=== PATIENT | male | born 1945 | race Caucasian/White ===

== ENCOUNTER 2019-08-17 05:24 | Inpatient (IN) | payer OTHER ==
[~2019-08-17] VITALS: Ht 175.3 cm; Wt 79.4 kg
[2019-08-17 05:40] LABS: BASOPHILS ABSOLUTE AUTO 0.05 K/mm3 (0.00-0.23); BASOPHILS PERCENT AUTO 1 % (0-2); EOSINOPHILS ABSOLUTE AUTO 0.18 K/mm3 (0.00-0.68); EOSINOPHILS PERCENT AUTO 2 % (0-6); Hematocrit 41.8 % (37.0-53.0); Hemoglobin 13.4 g/dL (13.5-17.5); IMMATURE GRAN ABSOLUTE AUTO 0.02 K/mm3 (0.00-0.10); IMMATURE GRAN PERCENT AUTO 0 % (0-1); LYMPHOCYTES ABSOLUTE AUTO 3.11 K/mm3 (0.84-5.20); LYMPHOCYTES PERCENT AUTO 31 % (21-46); MONOCYTES ABSOLUTE AUTO 0.73 K/mm3 (0.16-1.47); MONOCYTES PERCENT AUTO 7 % (4-13); Mean Corpuscular HGB 29.8 pg (26.0-34.0); Mean Corpuscular HGB Conc 32.1 g/dL (31.5-36.5); Mean Corpuscular Volume 93 fL (80-100); Mean Platelet Volume 10.9 fL (9.1-12.4); NEUTROPHILS ABSOLUTE AUTO 5.85 K/mm3 (1.96-9.15); NEUTROPHILS PERCENT AUTO 59 % (41-73); Platelet Count 270 K/mm3 (150-400); RDW Coefficient Variation 13.5 % (11.7-14.2); RDW Standard Deviation 46.2 fL (35.1-46.3); White Blood Cell Count 9.94 K/mm3 (4.00-11.30)
[2019-08-17 06:02] LABS: Albumin, Blood 3.4 g/dL (3.4-5.0); Albumin/Globulin Ratio 0.8 (0.8-1.8); Bilirubin, Total 0.2 mg/dL (0.1-1.0); Calcium, Blood 8.8 mg/dL (8.5-10.1); Creatinine, Blood 1.37 mg/dL (0.60-1.20); Potassium, Blood 3.9 mmol/L (3.5-5.5); Total Protein, Blood 7.4 g/dL (6.4-8.2); Troponin I 0.239 ng/mL (0.000-0.040)
[2019-08-17 06:33] LABS: PCO2 Arterial 37.7 mmHg (35-45)
[2019-08-17 07:42] LABS: Cholesterol 180 mg/dL (50-200); HDL Cholesterol 60 mg/dL (>39); LDL/HDL RATIO 1.8; Low Density Lipoprotein Chol 107 mg/dL (0-110); Triglycerides 67 mg/dL (30-160); Very Low Density Lipoprot Chol 13 mg/dL (6-32)
[2019-08-17 17:25] LABS: Source, Urine Clean Catch
[2019-08-17 17:33] LABS: Bilirubin, Urine Neg (Neg); Blood, Urine 2+ (Neg); Glucose Qualitative, Urine 2+ (Neg); Ketones, Urine Neg (Neg); Leukocyte Esterase, Urine Neg (Neg); Nitrite, Urine Neg (Neg); Protein, Urine 3+ (Neg); Specific Gravity, Urine 1.015 (1.003-1.022); Urobilinogen, Urine NORM (Normal)
--- NOTE | 2019-08-17 17:43 | NUR ---
SHIFT NOTE PT ARRIVED FROM ER THIS MORNING. PT WITH HTN AND SOB NOTED ON ARRIVAL. PT STS THAT SOB BEGAN AFTER BURNING BRUSH ON HIS PROPERTY LAST NOC. PT ALSO REPORTS THAT HE HAS NOT TAKEN ANY OF HIS MEDICATIONS IN 7 YEARS HE FELT HE NO LONGER NEEDED THEM AND BEGAN SELF MEDCIATING WITH MARIJUANA THAT HE IS GROWING. PT IS OTHERWISE ALERT AND ANSWERING QUESTIONS APPROPRIATELY IN FULL SENTENCES. PT STS BREATHING IS "BETTER", DENIES CP
[2019-08-17 18:07] LABS: Appearance, Urine Clear (Clear); Color, Urine Yellow (P-Yellow)
[2019-08-17 18:09] LABS: Bacteria Few /hpf; Red Blood Cells, Urine Not Seen /hpf (0-2); Squamous Epithelial Cells Rare /hpf (Few); Transitional Epithelial Cells Rare /hpf (0-Rare); White Blood Cells, Urine 0-2 /hpf (0-5)
--- NOTE | 2019-08-18 01:08 | NUR ---
PATIENT HYPERTENSIVE 193/122 TO 186/98 THIS SHIFT. HOSPITALIST [facility] COMMUNICATIONS SPECIALIST REPORTS TO CONTINUE TO GIVE APRESOLINE PO 10 MG Q4 FOR SBP >160 PER EMAR. NO NEW ORDERS. HX OF BEING OFF HIS MEDICATIONS X 7 YEARS. WILL CONTINUE TO MONITOR.
--- NOTE | 2019-08-18 01:31 | NUR ---
BP 186/98 AND PO APRESOLINE 10 MG GIVEN FOR SBP >160. REASSESSED AT 165/94. WILL CONTINUE TO MONITOR. NS INFUSING AT 75 mL/HR.
--- NOTE | 2019-08-18 02:14 | NUR ---
RESPIRATORY PANEL COLLECTED AND SENT TO LAB. TOXICOLOGY SAMPLE COLLECTED AND SENT TO LAB.
[2019-08-18 02:41] LABS: U Amphetamine Screen DETECTED; U Barbituate Screen Not Detected; U Benzodiazapine Screen DETECTED; U Buprenorphine Screen Not Detected; U Cannabinoids Screen DETECTED; U Cocaine Screen Not Detected; U Methadone Screen Not Detected; U Methamphetamine Screen DETECTED; U Opiates Screen Not Detected; U Oxycodone Screen Not Detected; U Propoxyphene Screen Not Detected
[2019-08-18 04:25] LABS: BASOPHILS ABSOLUTE AUTO 0.01 K/mm3 (0.00-0.23); BASOPHILS PERCENT AUTO 0 % (0-2); EOSINOPHILS PERCENT AUTO 0 % (0-6); Hematocrit 40.5 % (37.0-53.0); Hemoglobin 13.4 g/dL (13.5-17.5); IMMATURE GRAN ABSOLUTE AUTO 0.04 K/mm3 (0.00-0.10); IMMATURE GRAN PERCENT AUTO 0 % (0-1); LYMPHOCYTES ABSOLUTE AUTO 0.93 K/mm3 (0.84-5.20); LYMPHOCYTES PERCENT AUTO 8 % (21-46); MONOCYTES ABSOLUTE AUTO 0.43 K/mm3 (0.16-1.47); MONOCYTES PERCENT AUTO 4 % (4-13); Mean Corpuscular HGB 29.8 pg (26.0-34.0); Mean Corpuscular HGB Conc 33.1 g/dL (31.5-36.5); Mean Platelet Volume 10.9 fL (9.1-12.4); NEUTROPHILS ABSOLUTE AUTO 10.63 K/mm3 (1.96-9.15); NEUTROPHILS PERCENT AUTO 88 % (41-73); Platelet Count 285 K/mm3 (150-400); RDW Coefficient Variation 13.7 % (11.7-14.2); RDW Standard Deviation 45.3 fL (35.1-46.3); Red Blood Cell Count 4.49 M/mm3 (4.30-5.90); White Blood Cell Count 12.04 K/mm3 (4.00-11.30)
[2019-08-18 04:27] LABS: Mean Corpuscular Volume 90 fL (80-100)
[2019-08-18 04:48] LABS: Magnesium, Blood 2.1 mg/dL (1.6-2.4)
[2019-08-18 04:49] LABS: Albumin, Blood 3.3 g/dL (3.4-5.0); Albumin/Globulin Ratio 0.8 (0.8-1.8); Bilirubin, Total 0.3 mg/dL (0.1-1.0); Bun/Creatinine Ratio 22.8 (12.0-20.0); Calcium, Blood 8.9 mg/dL (8.5-10.1); Creatinine, Blood 1.27 mg/dL (0.60-1.20); Globulin, Blood 4.1 g/dL (2.2-4.0); Potassium, Blood 4.4 mmol/L (3.5-5.5); Total Protein, Blood 7.4 g/dL (6.4-8.2)
--- NOTE | 2019-08-18 05:03 | NUR ---
SHIFT SUMMARY PATIENT REMAINS HYPERTENSIVE STARTING SHIFT WITH BP OF 193/122 AND NOW 165/94. HOSPITALIST JUAN M NOTIFIED AND REPORTS TO CONTINUE WITH PRN PO APRESOLINE. APRESOLINE PO 10 MG GIVEN PRN PER EMAR FOR SBP >160. AXOX 3 AND SBA TO BR. PIV REMAINS INTACT. BUSINESS UNIT LEADER REPORTS SR BBB AT 94. ON 1L O2 NC. DENIES PAIN, SOB, AND N/V. AFEBRILE. NS INFUSING AT 75 mL/HR. RESPIRATORY PANEL AND TOXICOLOGY SAMPLE SENT TO LAB. COOPERATIVE WITH CARE. CALL LIGHT IN REACH. BED IN LOWEST POSITION. WILL CONTINUE TO MONITOR UNTIL DAY SHIFT NURSE ASSUMES CARE.
[2019-08-18 06:31] LABS: Adenovirus Not Detected (NOT DETECT); Bordetella pertussis Not Detected (NOT DETECT); Chlamydophila pneumoniae Not Detected (NOT DETECT); Coronavirus 229E Not Detected (NOT DETECT); Coronavirus HKU1 Not Detected (NOT DETECT); Coronavirus NL63 Not Detected (NOT DETECT); Coronavirus OC43 Not Detected (NOT DETECT); Human Metapneumovirus Not Detected (NOT DETECT); Human Rhinovirus/Enterovirus Not Detected (NOT DETECT); Influenza A Not Detected (NOT DETECT); Influenza A/2009-H1 Not Detected (NOT DETECT); Influenza A/H1 Not Detected (NOT DETECT); Influenza A/H3 Not Detected (NOT DETECT); Influenza B Not Detected (NOT DETECT); Mycoplasma pneumoniae Not Detected (NOT DETECT); Parainfluenza Virus 1 Not Detected (NOT DETECT); Parainfluenza Virus 2 Not Detected (NOT DETECT); Parainfluenza Virus 3 Not Detected (NOT DETECT); Parainfluenza Virus 4 Not Detected (NOT DETECT); Respiratory Syncytial Virus Not Detected (NOT DETECT)
--- NOTE | 2019-08-18 11:26 | NUR ---
Spiritual care visit conducted. Patient is sitting on a chair and alert. Patient is pleasant and openly shares about his medical history, his tour in [place], his life growing up, his career in [employer] and his [facility] belief [facility]. Patient talks about this health crisis as if it is a wake-up call for healthier living, for spiritual re-engagement and for a deeper sense of gratitude for family and friends. I listen empathically, reinforce helpful attitudes and practices, encourage self-care, and provide spiritual guidance and prayer. Patient responds well and gets tearful during the prayer. Patient responds well and shows signs of increased resolve and restored edy. I will continue to remain available to patient and family.
--- NOTE | 2019-08-18 15:34 | NUR ---
Initial Visit: Palliative Care Consult for AD/POLST and Advanced Care Planning. Pt admitted to hospital with COPD, Non ST Segment RI Type 2, L Arm Mass, HTN, Methamphetamine Use, and Acute Kidney Injury. Pt is A&O and reports mild and manageable pain. Pt reports dyspnea has improved and denies nausea. Engaged in therapeutic discussion regarding advanced care planning. Pt reports living alone and is . He has children that live on the same property as him. Pt reports originally living in [facility]. Pt is independent of his ADLs. Pt reports adequate family support. Educated Pt on disease process and trajectory of disease. Educated on the importance of complying with MD recommendations, routine conversations with PCP and specialists regarding disease process in order to plan accordingly. Discussed AD/POLST with Pt expressing interest in AD. Educated Pt on life sustaining measures and each section to complete. Educated Pt on the importance or appointing a healthcare litigation claim representative with V/U made by Pt. Pt reports he will have convesation with family before completing AD. No other concerns reported at this time. Provided Palliative Care contact information and instructed to call with any questions or concerns. Spoke with bedside MARIZTA Wade and discussed case. Palliative Care will remain available.
--- NOTE | 2019-08-18 18:14 | NUR ---
SHIFT NOTE PT HAD DENIES SOB AND CP T/O THE SHIFT, AT APPROX 1750 PT REPORTS SUDDEN ONSET OF SOB, ACESSORY MUSCLE USE NOTED, NOW WITH EXPIRATORY WHEEEZES NOTED T/O. HOB UPRIGHT, NASAL CANNULA PALCED AT 2L O2 SPO2 95%, PT VERY ANXIOUS STS "I CAN'T GET ANY AIR OUT", RT TO BEDSIDE FOR BREATHING TREATMENT, DR MORRIS IS NOTIFIED OF EVENT, THERE WERE NO NEW ORDERS FROM HER. PT RECIEVED SCHEDULED SOLUMEDROL. PT RETURNS TO BASELINE AFTER BREATHING TREATMENT, LS NOW COARSE T/O. NO ACCESSORY MUSCLE USE NOTED ONCE RETURNED TO BASELINE. HTN HAS REMAINED T/O SHIFT, LARGELY UNGHANGED DESPITE MEDICATIONS T/O THE DAY. PT IS NOW RESTING IN BED WITH RR OF 26, SP02 97% ON 2L, TALKING IN FULL SENTENCES. DENIES P, STS BREATHING HAS RETURNED TO BASELINE. SKIN PWD AT TIME OF THIS NOTE
--- NOTE | 2019-08-18 19:50 | NUR ---
THIS STUDENT NURSE HAS PERMISSION TO ACCESS PATIENT INFORMATION.
--- NOTE | 2019-08-19 06:18 | NUR ---
SHIFT SUMMARY PT A&O X4. BP ELEVATED, OTHERWISE VSS. PT MEDICATED W/ PRN HYDRALAZINE PER EMAR X1 THIS SHIFT. MONITOR SHOWS SR, HR 70's-90's. SPO2 > 92% ON 2L NC. PT DENIES SOB THIS SHIFT. NO EVENTS OVERNIGHT. GROWTH NOTED TO L ELBOW AREA. WILL CONTINUE TO MONITOR AND PROVIDE CARE UNTIL REPORT OFF TO DAY SHIFT RN.
--- NOTE | 2019-08-19 17:35 | NUR ---
SHIFT NOTE PT ALERT ANSWERING QUESTIONS APPROPRIATELY IN FULL SENTECNES T/O THE DAY. PT DENIES CP OR SOB DURING THIS SHIFT. PT HAS BEEN INDEPENDANT IN THE ROOM. PT DENIES ANY PAIN. SLIGHT EXPIRATORY WHEEZES ARE NOTED T/O LUNG FILEDS. PT REMAINS ON 2L O2 VIA NC. HTN REMAINS UNCHANGED. PT WILL BE NPO AFTER MIDNIGHT HE WILL GP FOR ANGIO IN THE AM.
[2019-08-20 04:38] LABS: Albumin, Blood 2.9 g/dL (3.4-5.0); Anion Gap 7 mmol/L (6-16); Blood Urea Nitrogen 39 mg/dL (8-24); Bun/Creatinine Ratio 32.5 (12.0-20.0); CO2, Blood 24 mmol/L (21-32); Calcium, Blood 8.2 mg/dL (8.5-10.1); Chloride, Blood 108 mmol/L (98-108); Glomerular Filtration Rate >60 (60-); Glucose, Blood 98 mg/dL (70-99); Phosphorus, Blood 3.2 mg/dL (2.5-4.9); Potassium, Blood 4.3 mmol/L (3.5-5.5); Sodium, Blood 139 mmol/L (136-145)
--- NOTE | 2019-08-20 06:05 | NUR ---
SHIFT SUMMARY PT CONTINUES TO BE A&O X4. NO EVENTS OVER NIGHT. BP's ELEVATED, OTHERWISE VSS. PT MEDICATED W/ PRN HYDRALAZINE X1 PER EMAR THIS SHIFT W/ IMPROVEMENT. MONITOR SHOWS NSR, HR 60's. SPO2 > 92% ON 2L NC. WILL CONTINUE TO MONITOR AND PROVIDE CARE UNTIL REPORT OFF TO DAY SHIFT RN.
--- NOTE | 2019-08-20 19:30 | NUR ---
SHIFT SUMMARY NO ACUTE CHANGES NOTED THROUGH THE DAY. PT REMAINS A/O X4, RESP UNLABORED, INDEPENDENT IN THE ROOM. HE WAS ABLE TO AMBULATE IN THE HALLS TODAY WITH NO PROBLEMS. PT DENIES SOB WHILE UP AND MOVING BUT DOES LIKE TO WHERE 2 L O2 VIA NC WHILE IN BED. TELE HAS BEEN D/C PER HOSP AND PT WAS CHANGED TO MEDIACL STATUS, CURRENTLY WAITING ON A BED. REPORT GIVEN TO CHEN SALAS.
--- NOTE | 2019-08-21 00:34 | NUR ---
TRANSFER NOTE PT MEDICAL NO TELE STATUS, TRANSFERRED TO SURGICAL FLOOR RM 227 @ APPROX 0030. REPORT GIVEN TO SURGICAL FLOOR RN ASSUMING CARE. PT A&O X4. VSS. SPO2 > 92% ON RA, PT OCCASSIONALLY APPLYING 2L NC FOR COMFORT THOUGH SPO2 > 92% AND PT DENIES SOB. PT AMBULATED FROM PCU RM 07 TO SURGICAL FLOOR RM 227 W/ FWW, TOLERATED WELL. SENIOR RESEARCH MANAGER TO CONTINUE W/ PT CARE.
--- NOTE | 2019-08-21 00:45 | NUR ---
TRANSFER NOTE PT TO ROOM 227. ARRIVED VIA AMBULATION USING FWW SBA. AAOX4. 2L VIA NC, SLIGHT WHEEZE T/O, PT DENIES ANY SOB AT THIS TIME. ORIENTED TO ROOM + CALL LIGHT. HTN NOTED, HYDRALAZINE GIVEN, WILL RECHECK BP. PT SITTING UP IN BED WATCHING TV.
--- NOTE | 2019-08-21 07:40 | NUR ---
SHIFT SUMMARY PT PCU TRANSFER THIS AM. AAOX4. PT WALKED TO ROOM USING FWW FROM PCU, TOLERATED WELL. 95-98% ON RA + 2L VIA NC AT BEDSIDE PRN PER PT'S REQUEST. PT ORIENTED TO ROOM + CALL LIGHT WITHIN REACH. PT RESTING WELL SINCE 0300 THIS AM. LABS TO BE DRAWN UPON PT'S AWAKENING. NO ACUTE CHANGES THIS SHIFT. REPORT TO DAY SHIFT RN.
--- NOTE | 2019-08-21 08:43 | NUR ---
DR PADILLA RECENTLY TO SEE PT.
[2019-08-21] MEDS ORDERED: ACET325 PO (13:32)
[2019-08-21] MEDS ORDERED: AMLO5 PO (13:32)
[2019-08-21] MEDS ORDERED: CARV6.25 PO (13:33)
[2019-08-21] MEDS ORDERED: ASPI81CH PO (13:33)
[2019-08-21] MEDS ORDERED: DOCU100 PO (13:34)
[2019-08-21] MEDS ORDERED: Isosorbide Mono30 MG PO (13:35)
[2019-08-21] MEDS ORDERED: LOSA50 PO (13:36)
[2019-08-21] MEDS ORDERED: Prednisone10 MG PO (13:37)
[2019-08-21] MEDS ORDERED: SENN187 PO (13:38)
[2019-08-21] MEDS ORDERED: ALBU90OI INH (13:43)
[2019-08-21] MEDS ORDERED: ZOCOR20 MG PO (13:44)
[2019-08-21] MEDS ORDERED: BUDE10.22 INH (13:44)
--- NOTE | 2019-08-21 16:04 | NUR ---
RT TO ROOM.
--- NOTE | 2019-08-21 17:50 | NUR ---
DISCHARGE: PT EATING AND DRINKING. PT AMBULATING WITH STEADY GAIT. RT HAS SEEN PT AND REPORTS PT REMAINS ABOVE 90% ON RA. DR PADILLA REPORTS PT MAY DISCHARGE TODAY. REPORTS TO GIVE CARDIAC MEDICATIONS BEFORE PT LEAVES PT REPORTS WILL GET MEDICATIONS FROM [facility] AND THE STOOL SOFTENERS FROM THE [place]. OTHER RN ASSISTED WITH DISCHARGE INCLUDING FAXING MEDICATIONS TO [facility] AND THE [place]. PT VOIDING. PT HAS BEEN DENYING CP T/O DAY AND NOW. PT/FAMILY REPORTS UNDERSTANDING OF DISCHARGE INSTRUCTIONS. PT SENT WITH BELONGINGS AND DISCHARGE PAPERWORK.
== END 2019-08-21 17:50 | disposition home or self-care (01) | DRG 281 ==
LOC: ER 05:24 → PCU 07:19 → SURS 08-21 00:32
PROVIDERS: Emergency Medicine; Internal Medicine; Nurse Practitioner Acute Care; ADMIT Internal Medicine
DX: I16.0 Hypertensive urgency (principal); I21.A1 Myocardial infarction type 2; I50.20 Unspecified systolic (congestive) heart failure; J44.1 Chronic obstructive pulmonary disease with (acute) exacerbation; I13.0 Hypertensive heart and chronic kidney disease with heart failure and stage 1 through stage 4 chronic kidney disease, or unspecified chronic kidney disease; N18.3 Chronic kidney disease, stage 3 (moderate); F19.90 Other psychoactive substance use, unspecified, uncomplicated; K59.00 Constipation, unspecified; E66.9 Obesity, unspecified; R22.32 Localized swelling, mass and lump, left upper limb; F17.290 Nicotine dependence, other tobacco product, uncomplicated
CPT/HCPCS: 0099U; 36415; 36600; 71260; 76882; 80053; 80061; 80069; 81001; 82550; 82803; 83735; 83880; 84145; 84484; 85025; 87086; 93005; 93010; 93306; 94640; 94760; 94761; 96365-59; 96375-59; 99285-25; A9270-GY; J0360; J1650; J2543; J2920; J2930; J7030; J7512; Q9967

== ENCOUNTER 2019-12-31 07:54 | Inpatient (IN) | payer OTHER ==
[~2019-12-31] VITALS: Ht 175.3 cm; Wt 84.0 kg
[~2019-12-31 07:54] MED LIST: ACET325 PO; ALBU90OI INH; AMLO5 PO; Aspirin EC81 MG PO; CARV6.25 PO; DOCU100 PO; Isosorbide Mono30 MG PO; LOSA50 PO; Prednisone10 MG PO; SENN187 PO; SYMBICORT 80-10.2 GM INH; ZOCOR20 MG PO
[2019-12-31 08:26] LABS: BASOPHILS ABSOLUTE AUTO 0.07 K/mm3 (0.00-0.23); BASOPHILS PERCENT AUTO 1 % (0-2); EOSINOPHILS ABSOLUTE AUTO 0.29 K/mm3 (0.00-0.68); EOSINOPHILS PERCENT AUTO 3 % (0-6); Hematocrit 43.7 % (37.0-53.0); Hemoglobin 14.3 g/dL (13.5-17.5); IMMATURE GRAN ABSOLUTE AUTO 0.04 K/mm3 (0.00-0.10); IMMATURE GRAN PERCENT AUTO 0 % (0-1); LYMPHOCYTES ABSOLUTE AUTO 2.72 K/mm3 (0.84-5.20); LYMPHOCYTES PERCENT AUTO 23 % (21-46); MONOCYTES ABSOLUTE AUTO 0.91 K/mm3 (0.16-1.47); MONOCYTES PERCENT AUTO 8 % (4-13); Mean Corpuscular HGB 29.9 pg (26.0-34.0); Mean Corpuscular HGB Conc 32.7 g/dL (31.5-36.5); Mean Corpuscular Volume 91 fL (80-100); Mean Platelet Volume 10.8 fL (9.1-12.4); NEUTROPHILS ABSOLUTE AUTO 7.71 K/mm3 (1.96-9.15); NEUTROPHILS PERCENT AUTO 66 % (41-73); Platelet Count 313 K/mm3 (150-400); RDW Coefficient Variation 13.8 % (11.7-14.2); RDW Standard Deviation 46.8 fL (35.1-46.3); Red Blood Cell Count 4.78 M/mm3 (4.30-5.90); White Blood Cell Count 11.74 K/mm3 (4.00-11.30)
[2019-12-31 08:50] LABS: Albumin, Blood 3.4 g/dL (3.4-5.0); Albumin/Globulin Ratio 0.8 (0.8-1.8); Bilirubin, Total 0.3 mg/dL (0.1-1.0); Calcium, Blood 8.6 mg/dL (8.5-10.1); Creatinine, Blood 1.25 mg/dL (0.60-1.20); Potassium, Blood 4.1 mmol/L (3.5-5.5); Total Protein, Blood 7.4 g/dL (6.4-8.2); Troponin I 0.018 ng/mL (0.000-0.040)
--- NOTE | 2019-12-31 11:42 | NUR ---
Echocardiogram completed.
[2019-12-31] MEDS ORDERED: ZOCOR20 MG PO (11:46)
[2019-12-31] MEDS ORDERED: DOCU100 PO (11:46)
--- NOTE | 2019-12-31 18:46 | NUR ---
ADMIT NOTE RECIEVED REPORT FROM MARITZA HAWK IN ED. PT TO ROOM AT APPROX 1245, PT TRANSFERED SELF TO BED BY SLIDING OVER. PT ORIENTED TO ROOM AND CALL LIGHT AND EDUCATED ON FALL RISK. PT A&Ox3; CALM AND COOPERATIVE WITH CARE. PT RESTING IN BED. PT SOB WITH EXERTION, ON 6L O2 VIA NC; SPO2 >90%; BIPAP AT BEDSIDE FOR PRN USE. OTHER VSS. NO OTHER ACUTE CHANGES NOTED. WILL CONTINUE TO MONITOR UNITL REPORT GIVEN TO ONCOMING RN. PT REPORTS NOT TAKING PRESCRIPTION MEDICATIONS FOR A MONTH OR SO; DAUGHTER AT BEDSIDE THIS AFTERNOON AND STATES SHE HAD BEEN UNAWARE BUT WILL BE CHECKING IN MORE OFTEN WITH HIS MEDCATION AND [facility]ING [facility]POINT[facility].
[2020-01-01 04:55] LABS: BASOPHILS ABSOLUTE AUTO 0.03 K/mm3 (0.00-0.23); BASOPHILS PERCENT AUTO 0 % (0-2); EOSINOPHILS ABSOLUTE AUTO 0.03 K/mm3 (0.00-0.68); EOSINOPHILS PERCENT AUTO 0 % (0-6); Hematocrit 38.2 % (37.0-53.0); Hemoglobin 12.1 g/dL (13.5-17.5); IMMATURE GRAN ABSOLUTE AUTO 0.01 K/mm3 (0.00-0.10); IMMATURE GRAN PERCENT AUTO 0 % (0-1); LYMPHOCYTES ABSOLUTE AUTO 1.78 K/mm3 (0.84-5.20); LYMPHOCYTES PERCENT AUTO 21 % (21-46); MONOCYTES ABSOLUTE AUTO 0.92 K/mm3 (0.16-1.47); MONOCYTES PERCENT AUTO 11 % (4-13); Mean Corpuscular HGB 29.4 pg (26.0-34.0); Mean Corpuscular HGB Conc 31.7 g/dL (31.5-36.5); Mean Corpuscular Volume 93 fL (80-100); NEUTROPHILS ABSOLUTE AUTO 5.82 K/mm3 (1.96-9.15); NEUTROPHILS PERCENT AUTO 68 % (41-73); Platelet Count 284 K/mm3 (150-400); Red Blood Cell Count 4.11 M/mm3 (4.30-5.90); White Blood Cell Count 8.59 K/mm3 (4.00-11.30)
[2020-01-01 05:19] LABS: Bun/Creatinine Ratio 17.6 (12.0-20.0); Calcium, Blood 8.3 mg/dL (8.5-10.1); Creatinine, Blood 1.42 mg/dL (0.60-1.20); Magnesium, Blood 2.2 mg/dL (1.6-2.4); Potassium, Blood 4.3 mmol/L (3.5-5.5); Troponin I 0.022 ng/mL (0.000-0.040)
--- NOTE | 2020-01-01 06:18 | NUR ---
SHIFT SUMMARY PT A&O X3; PLEASANT & COMPLIANT W/ CARE; VSS; DENIES CHEST PAIN; STATES HE HAS HX OF BROKEN RIBS & OTHER FX LEADING TO CHRONIC PAIN; BP NOTED ELEVATED DURING DURATION OF C/O PAIN; IMPROVED SLIGHTLY WITH TYLENOL & COMFORT MEASURES; DENIED ICE/HEAT PAD; PT STATES HE SMOKES MARIJUANA NIGHTLY TO HELP W/ PAIN; O2 SATS >93 ON 6L NC; PT REFUSED BIPAP DURING SHIFT; PT ABLE TO MAKE NEEDS KNOWN; SBA TO BSC; CALL LIGHT IN REACH; BED IN LOWEST POSITION; BED ALARM ON; WILL CONTINUE TO MONITOR UNTIL HAND OFF TO DAY SHIFT RN.
--- NOTE | 2020-01-01 19:05 | NUR ---
ASSUMED CARE APPROXIMATELY 1900 FROM [facility]; PT A&O; SITTING UP IN BED WATCHING TV; DENIES CHEST PAIN; VSS; STATES HE HAD A HEADACHE EARLIER & TORADOL GIVEN HELPED; O2 SATS >93 ON 2L NC; PT STATES DYSPNEA W/ EXERSION; CALL LIGHT IN REACH; BED IN LOWEST POSIITON; BED ALARM ON
--- NOTE | 2020-01-01 20:10 | NUR ---
SHIFT SUMMARY PT A&Ox3; CALM AND COOPERATIVE WITH CARE. PT RESTING IN BED DURING SHIFT PT SOB WITH EXERTION, STARTED DAY ON 6L O2 VIA NC AT 95-96%; TITRATED PT TO 2L O2 VIA NC; PT SPEAKING LOUDLY AND IN FULL SENTENCES WITH NO S/SX OF DISTRESS THIS EVENING, PT STARTED ON LASIX THIS AFTERNOON. PT REPORTS URRUTIA AND SHOULDER PAIN; OFFERED TYLENOL AND PT REFUSED ASKING FOR SOMETHING ELSE. NOTIFIED DR PITT, NEW ORDERS FOR TORADOL ENTERED. PT REPORTS IMPROVEMENT IN URRUTIA THIS EVENING. VSS. NO OTHER ACUTE CHANGES NOTED DURING SHIFT. REPORT GIVEN TO ONCOMING RN.
[2020-01-02 05:19] LABS: BASOPHILS ABSOLUTE AUTO 0.02 K/mm3 (0.00-0.23); BASOPHILS PERCENT AUTO 0 % (0-2); EOSINOPHILS PERCENT AUTO 0 % (0-6); Hematocrit 38.2 % (37.0-53.0); Hemoglobin 12.1 g/dL (13.5-17.5); IMMATURE GRAN ABSOLUTE AUTO 0.02 K/mm3 (0.00-0.10); IMMATURE GRAN PERCENT AUTO 0 % (0-1); LYMPHOCYTES ABSOLUTE AUTO 1.85 K/mm3 (0.84-5.20); LYMPHOCYTES PERCENT AUTO 20 % (21-46); MONOCYTES PERCENT AUTO 11 % (4-13); Mean Corpuscular HGB 29.5 pg (26.0-34.0); Mean Corpuscular HGB Conc 31.7 g/dL (31.5-36.5); Mean Corpuscular Volume 93 fL (80-100); Mean Platelet Volume 11.4 fL (9.1-12.4); NEUTROPHILS ABSOLUTE AUTO 6.27 K/mm3 (1.96-9.15); NEUTROPHILS PERCENT AUTO 69 % (41-73); Platelet Count 298 K/mm3 (150-400); RDW Coefficient Variation 14.1 % (11.7-14.2); RDW Standard Deviation 48.4 fL (35.1-46.3); White Blood Cell Count 9.16 K/mm3 (4.00-11.30)
[2020-01-02 05:45] LABS: Albumin/Globulin Ratio 0.9 (0.8-1.8); Bilirubin, Total 0.3 mg/dL (0.1-1.0); Bun/Creatinine Ratio 22.3 (12.0-20.0); Calcium, Blood 8.7 mg/dL (8.5-10.1); Creatinine, Blood 1.48 mg/dL (0.60-1.20); Globulin, Blood 3.5 g/dL (2.2-4.0); Magnesium, Blood 2.4 mg/dL (1.6-2.4); Potassium, Blood 4.2 mmol/L (3.5-5.5); Total Protein, Blood 6.5 g/dL (6.4-8.2)
--- NOTE | 2020-01-02 07:17 | NUR ---
SHIFT SUMMARY PT A&O; APPROXIMATELY 0430 C/O SEVERE PAIN; PT HAS HX OF SEVERAL FX, RIBS, LEGS, ETC; STATES TYLENOL DOES NOT HELP; NOTIFIED, NEW ORDER GIVEN FOR FENTANYL; 25MCG ADMINISTERED & PT REPORTS SIGNIFICANT RELIEF; VSS; CURRENTLY READING PAPER IN BED; CALL LIGHT IN REACH; BED IN LOWEST POSITION; REPORT GIVEN TO DAY SHIFT RN.
--- NOTE | 2020-01-02 15:57 | NUR ---
Spiritual care visit conducted. Patient is sitting on EOB and alert. Patient immediately tells me about his medical issues, his family and Taoism edy background. Patient talks about his family unit complications and asks me to be available to talk with his son who is struggling with his edy. I listen empathically, reinforce helpful attitudes and practices, and provide companionship, pastoral certified alcohol and drug counselor and prayer. Patient responds well and shows signs of restored edy. Patient voices gratitude for the visit. I will continue to remain available to patient and family.
--- NOTE | 2020-01-02 17:52 | NUR ---
SHIFT SUMMARY; NO ACUTE CHANGES DURING SHIFT. 2L [address] DENIES SOB. INDEPENDANT IN ROOM, A/A/OX4. MEDICATED FOR PAIN PER ORDERS DURING SHIFT. REPORTS CHRONIC PAIN HISTORY. WILL CONTINUE TO MONITOR UNTIL CHANGE OF SHIFT.
[2020-01-03 04:14] LABS: BASOPHILS ABSOLUTE AUTO 0.03 K/mm3 (0.00-0.23); BASOPHILS PERCENT AUTO 0 % (0-2); EOSINOPHILS ABSOLUTE AUTO 0.01 K/mm3 (0.00-0.68); EOSINOPHILS PERCENT AUTO 0 % (0-6); Hematocrit 37.8 % (37.0-53.0); Hemoglobin 12.1 g/dL (13.5-17.5); IMMATURE GRAN ABSOLUTE AUTO 0.04 K/mm3 (0.00-0.10); IMMATURE GRAN PERCENT AUTO 0 % (0-1); LYMPHOCYTES ABSOLUTE AUTO 2.11 K/mm3 (0.84-5.20); LYMPHOCYTES PERCENT AUTO 20 % (21-46); MONOCYTES ABSOLUTE AUTO 0.96 K/mm3 (0.16-1.47); MONOCYTES PERCENT AUTO 9 % (4-13); Mean Corpuscular HGB 29.7 pg (26.0-34.0); Mean Corpuscular Volume 93 fL (80-100); NEUTROPHILS PERCENT AUTO 70 % (41-73); Platelet Count 286 K/mm3 (150-400); RDW Coefficient Variation 14.1 % (11.7-14.2); RDW Standard Deviation 48.2 fL (35.1-46.3); Red Blood Cell Count 4.07 M/mm3 (4.30-5.90); White Blood Cell Count 10.65 K/mm3 (4.00-11.30)
[2020-01-03 04:37] LABS: Albumin, Blood 3.4 g/dL (3.4-5.0); Albumin/Globulin Ratio 0.9 (0.8-1.8); Bilirubin, Total 0.4 mg/dL (0.1-1.0); Calcium, Blood 8.7 mg/dL (8.5-10.1); Creatinine, Blood 1.6 mg/dL (0.60-1.20); Globulin, Blood 3.8 g/dL (2.2-4.0); Potassium, Blood 4.4 mmol/L (3.5-5.5); Total Protein, Blood 7.2 g/dL (6.4-8.2)
--- NOTE | 2020-01-03 06:21 | NUR ---
SHIFT SUMMARY. PAIN CONTROL W/ IV AND PO MEDS. FOR CHRONIC PAIN WHOLE BODY USUALLY RELIEVED WELL W/ CANNIBIS AT HOME. ASSISTED W/ SHOWER AND TOLERATED WELL W/O O2 AND SATS WHEN BACK TO BED 95% LEFT OFF SINCE 299, AND ONLY 1L PRIOR TO THAT, TONIGHT,BNP UP THIS AM. OOB IN [place]. NO ISSUES W/ ACTIVITY . CONT RA. MED NO TELE
[2020-01-03] MEDS ORDERED: Nicoderm Cq1 EAC1 TOP (10:26)
[2020-01-03] MEDS ORDERED: PRED20 PO (10:26)
[2020-01-03] MEDS ORDERED: FURO20 PO (10:27)
[2020-01-03] MEDS ORDERED: SPIR25 PO (10:28)
--- NOTE | 2020-01-03 12:33 | NUR ---
DISCHARGE SUMMARY PT A&Ox3; CALM AND COOPERATIVE WITH CARE. PT RESTING IN BED DURING SHIFT. UP IND IN HALLS. PT REPORT BACK/NECK PAIN; MEDICATED WITH SCHEDULED TRAMADOL. PT REPORTS SOB HAS IMPROVED DURING ADMISSION; SPO2 >90% ON RA DURING SHIFT. PT PT DENIES NAUSEA AND DIZZINESS DURING SHIFT. ELEVATED BP THIS AM, TRENDING DOWN WITH SCHEDULED MEDICATIONS. OTHER VSS. NO OTHER ACUTE CHANGES NOTED DURING SHIFT. EDUCATED PT AND DAUGHTER ON DISCHARGE INSTRUCTIONS, FOLLOW UP APPOINTMENT AND MEDICATIONS. [facility] PER [facility] REQUEST. PT ENCOURAGED TO MEDICAL LIBRARIAN PRESCRIPTIONS TODAY FROM [facility]. EDUCATED PT ON CHF; DAILY WEIGHTS, DIET CHANGES AND WHEN TO CALL A DR OR COME TO ED. PT LEFT ROOM VIA WHEELCHAIR AT 1232.
== END 2020-01-03 12:33 | disposition home or self-care (01) | DRG 291 ==
LOC: ER 07:54 → PCU 11:50
PROVIDERS: Emergency Medicine; Internal Medicine; ADMIT Family Medicine
DX: I11.0 Hypertensive heart disease with heart failure (principal); J96.21 Acute and chronic respiratory failure with hypoxia; J44.1 Chronic obstructive pulmonary disease with (acute) exacerbation; I50.43 Acute on chronic combined systolic (congestive) and diastolic (congestive) heart failure; I16.0 Hypertensive urgency; I25.10 Atherosclerotic heart disease of native coronary artery without angina pectoris; F17.210 Nicotine dependence, cigarettes, uncomplicated; F12.129 Cannabis abuse with intoxication, unspecified; Z91.14 Patient's other noncompliance with medication regimen; Z79.82 Long term (current) use of aspirin
CPT/HCPCS: 36415; 71045; 71046; 80048; 80053; 83605; 83735; 83880; 84145; 84443; 84484; 85025; 93005; 93010; 93306; 94640; 94660; 94760; 94762; 96374-59; 97162; 99285-25; A9270; A9270-GY; J0360; J1650; J1885; J1940; J3010; J7030; J7512

== ENCOUNTER 2020-08-15 16:21 | Emergency (ER) | payer OTHER ==
[~2020-08-15] VITALS: Ht 175.3 cm; Wt 79.4 kg
[~2020-08-15 16:21] MED LIST changes: +FURO20 PO; +Nicoderm Cq1 EAC1 TOP; +PRED20 PO; +SPIR25 PO
[2020-08-15 16:46] LABS: BASOPHILS ABSOLUTE AUTO 0.05 K/mm3 (0.00-0.23); BASOPHILS PERCENT AUTO 1 % (0-2); EOSINOPHILS ABSOLUTE AUTO 0.08 K/mm3 (0.00-0.68); EOSINOPHILS PERCENT AUTO 1 % (0-6); Hematocrit 45.3 % (37.0-53.0); Hemoglobin 14.8 g/dL (13.5-17.5); IMMATURE GRAN ABSOLUTE AUTO 0.02 K/mm3 (0.00-0.10); IMMATURE GRAN PERCENT AUTO 0 % (0-1); LYMPHOCYTES ABSOLUTE AUTO 2.62 K/mm3 (0.84-5.20); LYMPHOCYTES PERCENT AUTO 25 % (21-46); MONOCYTES ABSOLUTE AUTO 0.84 K/mm3 (0.16-1.47); MONOCYTES PERCENT AUTO 8 % (4-13); Mean Corpuscular HGB 29.7 pg (26.0-34.0); Mean Corpuscular HGB Conc 32.7 g/dL (31.5-36.5); Mean Corpuscular Volume 91 fL (80-100); Mean Platelet Volume 10.9 fL (9.1-12.4); NEUTROPHILS ABSOLUTE AUTO 6.87 K/mm3 (1.96-9.15); NEUTROPHILS PERCENT AUTO 66 % (41-73); Platelet Count 321 K/mm3 (150-400); RDW Coefficient Variation 13.2 % (11.7-14.2); RDW Standard Deviation 43.8 fL (35.1-46.3); Red Blood Cell Count 4.98 M/mm3 (4.30-5.90); White Blood Cell Count 10.48 K/mm3 (4.00-11.30)
[2020-08-15 17:12] LABS: Alanine Aminotransfer (ALT/SGP 27 U/L (12-78); Albumin, Blood 3.7 g/dL (3.4-5.0); Alk Phos 106 U/L (50-136); Anion Gap 6 mmol/L (6-16); Aspartate Aminotrans (AST/SGOT 11 U/L (12-37); Bilirubin, Total 0.8 mg/dL (0.1-1.0); Blood Urea Nitrogen 22 mg/dL (8-24); CO2, Blood 27 mmol/L (21-32); Calcium, Blood 9.2 mg/dL (8.5-10.1); Chloride, Blood 111 mmol/L (98-108); Creatinine, Blood 1.22 mg/dL (0.60-1.20); Globulin, Blood 3.8 g/dL (2.2-4.0); Glomerular Filtration Rate >60 (60-); Glucose, Blood 87 mg/dL (70-99); Potassium, Blood 4.1 mmol/L (3.5-5.5); Sodium, Blood 144 mmol/L (136-145); Total Protein, Blood 7.5 g/dL (6.4-8.2)
== END 2020-08-15 18:30 | disposition home or self-care (01) ==
LOC: ER 16:21
PROVIDERS: Emergency Medicine
DX: I50.9 Heart failure, unspecified (principal); J44.9 Chronic obstructive pulmonary disease, unspecified; I25.10 Atherosclerotic heart disease of native coronary artery without angina pectoris; F17.290 Nicotine dependence, other tobacco product, uncomplicated; Z79.82 Long term (current) use of aspirin; Z79.899 Other long term (current) drug therapy; Z79.51 Long term (current) use of inhaled steroids
CPT/HCPCS: 36415; 71045; 80053; 83880; 85025; 93005; 93010; 99285-25; A9270

== ENCOUNTER 2021-05-12 11:17 | Emergency (ER) | payer OTHER ==
[~2021-05-12] VITALS: Ht 175.3 cm; Wt 79.4 kg
[2021-05-12 12:15] LABS: Source, Urine Clean Catch
[2021-05-12 12:26] LABS: Appearance, Urine Clear (Clear); Bilirubin, Urine Neg (Neg); Blood, Urine 3+ (Neg); Color, Urine Yellow (P-Yellow); Glucose Qualitative, Urine Neg (Neg); Ketones, Urine Neg (Neg); Leukocyte Esterase, Urine Neg (Neg); Nitrite, Urine Neg (Neg); Protein, Urine 4+ (Neg); Urobilinogen, Urine NORM (Normal)
[2021-05-12 12:59] LABS: Bacteria Rare /hpf; Granular Casts 0-2 /lpf (0); Hyaline Casts 0-2 /lpf (0-2); Squamous Epithelial Cells Not Seen /hpf (Few); White Blood Cells, Urine 0-2 /hpf (0-5)
== END 2021-05-12 13:21 | disposition home or self-care (01) ==
LOC: ER 11:17
PROVIDERS: Physician Assistant
DX: R33.9 Retention of urine, unspecified (principal); F17.210 Nicotine dependence, cigarettes, uncomplicated; Z79.899 Other long term (current) drug therapy
CPT/HCPCS: 51702; 81001; 99283-25

== ENCOUNTER 2022-08-07 07:13 | Inpatient (IN) | payer OTHER ==
[~2022-08-07] VITALS: Ht 175.3 cm; Wt 84.1 kg
[2022-08-07 07:57] LABS: BASOPHILS ABSOLUTE AUTO 0.04 K/mm3 (0.00-0.23); BASOPHILS PERCENT AUTO 0 % (0-2); EOSINOPHILS PERCENT AUTO 1 % (0-6); Hematocrit 41.3 % (37.0-53.0); Hemoglobin 13.9 g/dL (13.5-17.5); IMMATURE GRAN ABSOLUTE AUTO 0.03 K/mm3 (0.00-0.10); IMMATURE GRAN PERCENT AUTO 0 % (0-1); LYMPHOCYTES ABSOLUTE AUTO 2.29 K/mm3 (0.84-5.20); LYMPHOCYTES PERCENT AUTO 25 % (21-46); MONOCYTES ABSOLUTE AUTO 0.85 K/mm3 (0.16-1.47); MONOCYTES PERCENT AUTO 9 % (4-13); Mean Corpuscular HGB 30.2 pg (26.0-34.0); Mean Corpuscular HGB Conc 33.7 g/dL (31.5-36.5); Mean Corpuscular Volume 90 fL (80-100); Mean Platelet Volume 10.7 fL (9.1-12.4); NEUTROPHILS ABSOLUTE AUTO 5.97 K/mm3 (1.96-9.15); NEUTROPHILS PERCENT AUTO 64 % (41-73); Platelet Count 291 K/mm3 (150-400); RDW Coefficient Variation 13.4 % (11.7-14.2); RDW Standard Deviation 43.9 fL (35.1-46.3); White Blood Cell Count 9.28 K/mm3 (4.00-11.30)
[2022-08-07 08:14] LABS: Albumin, Blood 3.8 g/dL (3.4-5.0); Albumin/Globulin Ratio 1.1 (0.8-1.8); Bilirubin, Total 0.5 mg/dL (0.1-1.0); Bun/Creatinine Ratio 18.6 (12.0-20.0); Calcium, Blood 9.4 mg/dL (8.5-10.1); Creatinine, Blood 1.4 mg/dL (0.60-1.20); Globulin, Blood 3.6 g/dL (2.2-4.0); Magnesium, Blood 2.2 mg/dL (1.6-2.4); Potassium, Blood 4.5 mmol/L (3.5-5.5); Total Protein, Blood 7.4 g/dL (6.4-8.2)
[2022-08-07 09:39] LABS: Influenza A, PCR NEGATIVE (NEGATIVE); Influenza B, PCR NEGATIVE (NEGATIVE); Resp Syncytial Virus, PCR NEGATIVE (NEGATIVE); SARS-Cov-2 (COVID-19) PCR, MMC NEGATIVE (NEGATIVE)
[2022-08-07 10:34] LABS: U Amphetamine Screen Not Detected; U Barbituate Screen Not Detected; U Benzodiazapine Screen Not Detected; U Buprenorphine Screen Not Detected; U Cannabinoids Screen DETECTED; U Cocaine Screen Not Detected; U Methadone Screen Not Detected; U Methamphetamine Screen Not Detected; U Opiates Screen Not Detected; U Oxycodone Screen Not Detected; U Phencyclidine Screen Not Detected; U Propoxyphene Screen Not Detected
--- NOTE | 2022-08-07 19:06 | NUR ---
SHIFT SUMMARY: PATIENT NEW ADMITT FROM ER c DX OF CHF EXACERBATION. ARRIVED TO ROOM AT AROUND 1210. PATIENT TRANSFERRED TO BED c SBA. ADMISSION, MEDRIC, AND 2 RN SKIN VERIFICATION WAS DONE. PATIENT NOTED TO HAVE BIG HARD LUMP TO LOCO. PER PATIENT HE HAD IT FOR 2 YEARS NOW AND DOES NOT HURT. REDNESS TO COCCYX BUT BLANCHEABLE, NO OPEN SORE. IV TO LAC SALINE LOCK. PATIENT ON TELE, NSR IN HIGH 70'S BPM, PER RIVET FLUNKY, SHABNAM WOLF. DENIES CP/PRESSURE. PATIENT REPORTS DYSPNEA AT REST. LUNGS TIGHT/DIM T/O TO AUSCULTATION. PATIENT ON RA c SPO2 RANGES 94-96% T/O SHIFT. AMBULATES TO BATHROOM c SBA AND USES URINAL AT BEDSIDE. SCD'S INPLACED TO BLE. RECEIVED BREATHING TX ADMINISTERED BY RT THIS PM. VITAL SIGNS REVIEWED. CALL LIGHT IN REACH.
--- NOTE | 2022-08-08 02:37 | NUR ---
NOTIFIED BY [facility] BILLING SUPERVISOR THAT PT HAD ST ELEVATION.
[2022-08-08 05:53] LABS: Hematocrit 37.2 % (37.0-53.0); Hemoglobin 12.9 g/dL (13.5-17.5); Mean Corpuscular HGB 31.1 pg (26.0-34.0); Mean Corpuscular HGB Conc 34.7 g/dL (31.5-36.5); Mean Corpuscular Volume 90 fL (80-100); Platelet Count 263 K/mm3 (150-400); RDW Coefficient Variation 13.5 % (11.7-14.2); RDW Standard Deviation 43.9 fL (35.1-46.3); Red Blood Cell Count 4.15 M/mm3 (4.30-5.90); White Blood Cell Count 6.99 K/mm3 (4.00-11.30)
[2022-08-08 06:08] LABS: Creatinine, Blood 1.65 mg/dL (0.60-1.20); Magnesium, Blood 2.2 mg/dL (1.6-2.4); Potassium, Blood 4.2 mmol/L (3.5-5.5)
--- NOTE | 2022-08-08 06:09 | NUR ---
SHIFT SUMMARY NOC PT A/O X 4. PT HAD C/O OF SOB AND RT ADMININSTERED BREATHING TX. PT HAD TROUBLE FALLING ASLEEP AND MELETONIN WAS OBTAINED. PT IV ACCESS WAS MOVED FROM LAC TO LFA. PT IS ON TELE RUNNING SR @ 81 BPM. HE DID HAVE AN EPISODE OF ST ELEVATION (TELE STRIP IN CHART). PT WAS PLEASANT AND COOPERATIVE TO CARE AND ALSO QUITE TALKATIVE. PT IS CURRENTLY RESTING IN BED WATCHING TV WITH BED IN LOWEST POSITION, AND CALL LIGHT WITHIN REACH.
--- NOTE | 2022-08-08 18:19 | NUR ---
MAKES NEEDS KNOWN, QTC PROLONGED, EKG DONE, DR GOYAL AWARE, ECHO DONE AT BEDSIDE, PATIENT ASYMTOMATIC, DENMOMOS CP, SOB IMPORVED, STARTED IV LASIX. INDEPEDENT IN ROOM, MAKES NEEDS KNOWN, CALL LIGHT WITH IN REACH, WILL RELAY TO PM RN
--- NOTE | 2022-08-09 04:31 | NUR ---
SHIFT SUMMARY [facility] PT A/O X 4. PT HAD C/O OF SEVERE CONSTIPATION DURING DAY SHIFT THAT CARRIED INTO NOC. PT WAS GIVEN PRN STOOL SOFTENER PER EMAR WHICH DID NOT RELIEVE IT. PRN ORDER FOR MOM WAS OBTAINED AND PT HAS HAD MULTIPLE BM'S SINCE AND NO C/O OF CONSTIPATION CURRENTLY. PT IS ON TELE AT SINUS RHYTH @ 79 BPM. NOTIFIED BY TECHNICAL COORDINATOR @ 1999 THAT PT HAD PROLONGED QTC OF 0.57. PT IS STILL DIURESING CONGESTION WITH LASIX. PT PLEASANT AND COOPERATIVE TO CARE. PT IS CURRENTLY RESTING WITH BED IN LOWEST POSITION, AND CALL LIGHT WITHIN REACH.
[2022-08-09 05:30] LABS: Bun/Creatinine Ratio 26.4 (12.0-20.0); Calcium, Blood 8.7 mg/dL (8.5-10.1); Creatinine, Blood 1.78 mg/dL (0.60-1.20); Magnesium, Blood 2.6 mg/dL (1.6-2.4); Potassium, Blood 4.4 mmol/L (3.5-5.5)
--- NOTE | 2022-08-09 16:13 | NUR ---
SHIFT SUMMARY NO ACUTE CHANGES THIS SHIFT. PT HAS BEEN AMBULATING IN THE ROOM, READING, AND TALKING ON THE PHONE. HE IS AOX4, TALKATIVE. HE HAS HAD NO C/O P/N/V/CP/SOB THIS SHIFT. PT REQUESTED STOOL SOFTENER PRN. WILL REPORT TO ONCOMING NURSE.
[2022-08-10 05:15] LABS: Bun/Creatinine Ratio 28.2 (12.0-20.0); Calcium, Blood 9.1 mg/dL (8.5-10.1); Creatinine, Blood 1.74 mg/dL (0.60-1.20); Potassium, Blood 4.3 mmol/L (3.5-5.5)
[2022-08-10] MEDS ORDERED: SENNA LAXATIVE8.6 MG PO (11:33)
[2022-08-10] MEDS ORDERED: DULCOLAX400 MG/5 M PO (11:34)
--- NOTE | 2022-08-10 17:25 | NUR ---
DISCHARGE NOTE PT DISCHARGED TO HOME TO LIVE WITH HIS DAUGHTER. SHE ARRIVED TO PICK HIM UP AND BEING TAKEN TO HER VEHICLE BY WHEELCHAIR. HIS IV IS REMOVED ALONG WITH TELE. HIS MEDICATIONS WERE FAXED TO THE PHARMACY OF HIS CHOICE. HIS DISCHARGE PAPERWORK AND EDUCATION WERE GIVEN TO THE PT.
== END 2022-08-10 17:33 | disposition home health service (06) | DRG 291 ==
LOC: ER 07:13 → MEDS 07:14
PROVIDERS: Emergency Medicine; Internal Medicine; Nurse Practitioner Acute Care; ADMIT Hospitalist
DX: I11.0 Hypertensive heart disease with heart failure (principal); I50.43 Acute on chronic combined systolic (congestive) and diastolic (congestive) heart failure; N17.9 Acute kidney failure, unspecified; I16.1 Hypertensive emergency; J44.9 Chronic obstructive pulmonary disease, unspecified; R77.8 Other specified abnormalities of plasma proteins; E78.5 Hyperlipidemia, unspecified; I25.10 Atherosclerotic heart disease of native coronary artery without angina pectoris; F17.210 Nicotine dependence, cigarettes, uncomplicated; F12.10 Cannabis abuse, uncomplicated; Z20.822 Contact with and (suspected) exposure to COVID-19; Z91.14 Patient's other noncompliance with medication regimen; Z79.01 Long term (current) use of anticoagulants; Z79.899 Other long term (current) drug therapy
CPT/HCPCS: 0241U; 36415; 71045; 80048; 80053; 83735; 83880; 84484; 85025; 85027; 93005; 93010; 93306; 94640; 94664; 94760; 96372; 96374; 96375; 96376; 99285-25; A9270; G0378; J1650; J1940

== ENCOUNTER 2022-08-13 10:00 | Observation (INO) | payer OTHER ==
[~2022-08-13] VITALS: Ht 175.3 cm; Wt 85.0 kg
[~2022-08-13 10:00] MED LIST changes: +DULCOLAX400 MG/5 M PO; +SENNA LAXATIVE8.6 MG PO
[2022-08-13 11:14] LABS: Albumin, Blood 3.5 g/dL (3.4-5.0); Albumin/Globulin Ratio 0.9 (0.8-1.8); Bilirubin, Total 0.6 mg/dL (0.1-1.0); Bun/Creatinine Ratio 25.7 (12.0-20.0); Calcium, Blood 8.8 mg/dL (8.5-10.1); Creatinine, Blood 1.4 mg/dL (0.60-1.20); Globulin, Blood 3.8 g/dL (2.2-4.0); Total Protein, Blood 7.3 g/dL (6.4-8.2)
[2022-08-13 11:34] LABS: BASOPHILS ABSOLUTE AUTO 0.05 K/mm3 (0.00-0.23); BASOPHILS PERCENT AUTO 1 % (0-2); EOSINOPHILS ABSOLUTE AUTO 0.22 K/mm3 (0.00-0.68); EOSINOPHILS PERCENT AUTO 3 % (0-6); Hematocrit 39.4 % (37.0-53.0); Hemoglobin 12.8 g/dL (13.5-17.5); IMMATURE GRAN ABSOLUTE AUTO 0.03 K/mm3 (0.00-0.10); IMMATURE GRAN PERCENT AUTO 0 % (0-1); LYMPHOCYTES ABSOLUTE AUTO 2.16 K/mm3 (0.84-5.20); LYMPHOCYTES PERCENT AUTO 27 % (21-46); MONOCYTES ABSOLUTE AUTO 0.88 K/mm3 (0.16-1.47); MONOCYTES PERCENT AUTO 11 % (4-13); Mean Corpuscular HGB Conc 32.5 g/dL (31.5-36.5); Mean Corpuscular Volume 92 fL (80-100); Mean Platelet Volume 11.4 fL (9.1-12.4); NEUTROPHILS ABSOLUTE AUTO 4.61 K/mm3 (1.96-9.15); NEUTROPHILS PERCENT AUTO 58 % (41-73); Platelet Count 284 K/mm3 (150-400); RDW Coefficient Variation 13.7 % (11.7-14.2); RDW Standard Deviation 46.5 fL (35.1-46.3); Red Blood Cell Count 4.27 M/mm3 (4.30-5.90); White Blood Cell Count 7.95 K/mm3 (4.00-11.30)
--- NOTE | 2022-08-13 17:59 | NUR ---
PT ADMITTED TO ED TO ROOM 355 AT 1730 VIA STRETCHER, AMBULATED TO BED SBA. MIN SOB, ROOM AIR, NO RESP DISTRESS. SPEAKING IN FULL SENTENCES, ABLE TO STATE HISTORY. ORIENTED TO ROOM SET UP AND SAFETY.
[2022-08-14 04:49] LABS: Hematocrit 37.1 % (37.0-53.0); Hemoglobin 12.6 g/dL (13.5-17.5); Mean Corpuscular HGB 30.7 pg (26.0-34.0); Mean Corpuscular Volume 91 fL (80-100); Mean Platelet Volume 11.1 fL (9.1-12.4); Platelet Count 284 K/mm3 (150-400); RDW Coefficient Variation 13.5 % (11.7-14.2); RDW Standard Deviation 45.1 fL (35.1-46.3); White Blood Cell Count 6.59 K/mm3 (4.00-11.30)
[2022-08-14 05:17] LABS: Bun/Creatinine Ratio 28.1 (12.0-20.0); Calcium, Blood 8.7 mg/dL (8.5-10.1); Creatinine, Blood 1.53 mg/dL (0.60-1.20); Magnesium, Blood 2.4 mg/dL (1.6-2.4); Potassium, Blood 4.1 mmol/L (3.5-5.5)
--- NOTE | 2022-08-14 05:36 | NUR ---
SHIFT SUMMARY ADMITTED FOR SOB/COPD EXAC. HE HAS CHF. FULL CODE. WE ARE DIURESING HIM, STEROIDS, AND RT TX'S. TELEMETRY: ADRIENNE @ 59 BPM. 2 G LOW NA+ DIET. INDEPENDENT- BRP. HE IS A&O X4. 2 RN SKIN ASSESSMENT COMPLETED. HX OF NONCOMPLIANCE W/HOME MEDICATIONS. HE IS ON RA HERE AND @ BASELINE.
--- NOTE | 2022-08-14 16:04 | NUR ---
PT HAS BEEN AOX4 AND COOPERATIVE OF CARE. PT INDEPENDENT IN ROOM AND DENIES ANY PAIN AT THIS TIME. CARE IS BEING TRANSFERED OVER TO KELSEY SALAS.
--- NOTE | 2022-08-14 16:14 | NUR ---
Upon receiving a referral for spiritual care, I visit the patient. Patient tells me about his lung and heart issues, and the stress his health causes him. He then talks at length about his life growing up in the [employer], his career in the [employer] and his family. We talks about his Hoahaoism beliefs and the doubts he has had through the yrs. He shares about how his family, edy and love for the outdoors are what motivate and inspire him today, I normalize his experience, reinforce helpful attitudes and practices and provide therapeutic listening, anxiety containment, companionship and prayer. Patient responds well and at the conclusion of our visit states, "I feel better already." I will continue to remain available to patient and family.
--- NOTE | 2022-08-14 18:06 | NUR ---
ALERT AND ORIENTED, RASPY MUMBLED VOICE AND SPEECH, MAKES NEEDS KNOWN, LS CONGESTED, PATIENT CLEARS CONGESTION WITH COUGH, ALBUTEROL TX, CONTINUING DIURETIC AND STEROID TREATMENT FOR COPD EXAC, CALL LIGHT WITH IN REACH, WILL RELAY TO PM RN
--- NOTE | 2022-08-15 04:55 | NUR ---
SHIFT SUMMARY ADMITTED FOR COPD EXACERBATION/CHF. FULL CODE. WE HAVE BEEN DIURESING HIM. STEROIDS ARE SCHEDULED. RT TX'S. 2 G LOW NA+ DIET. CRACKLES IN BASES OF LUNGS W/EXPIRATORY WHEEZES, MOIST COUGH. HE IS INDEPENDENT IN ROOM. ON RA. A&O X4. TELEMETRY: NSR @ 73 BPM.
[2022-08-15] MEDS ORDERED: POTCHL20ER PO (12:13)
[2022-08-15] MEDS ORDERED: PRED20 PO (12:13)
[2022-08-15] MEDS ORDERED: ALBU90OI INH (12:14)
--- NOTE | 2022-08-15 14:13 | NUR ---
Discharge Summary A/Ox4, cooperative with care. Reviewed d/c papers with daughter and patient, no questions at this time. Copy given. Meds faxed to [facility]. Up ad claudia. Great appetite. RA. Breathing much improved per patient. Escorted by CHEMICAL ANALYTICAL SAMPLER via w/c.
== END 2022-08-15 14:12 | disposition home or self-care (01) ==
LOC: ER 10:00 → MEDS 16:00 → ER 16:58 → MEDS 17:25
PROVIDERS: Nurse Practitioner Acute Care; Physician Assistant; ADMIT Internal Medicine
DX: I13.0 Hypertensive heart and chronic kidney disease with heart failure and stage 1 through stage 4 chronic kidney disease, or unspecified chronic kidney disease (principal); I50.43 Acute on chronic combined systolic (congestive) and diastolic (congestive) heart failure; N18.30 Chronic kidney disease, stage 3 unspecified; I25.10 Atherosclerotic heart disease of native coronary artery without angina pectoris; E78.5 Hyperlipidemia, unspecified; D64.9 Anemia, unspecified; I25.2 Old myocardial infarction; I82.409 Acute embolism and thrombosis of unspecified deep veins of unspecified lower extremity; F15.21 Other stimulant dependence, in remission; Z72.0 Tobacco use; Z91.199 Patient's noncompliance with other medical treatment and regimen due to unspecified reason
CPT/HCPCS: 36415; 71046; 80048; 80053; 83735; 83880; 84484; 85025; 85027; 93005; 93010; 94640; 94644; 94645; 94664; 94760; 96374; 99285-25; A9270; J1650; J1940; J7512

== ENCOUNTER 2023-01-28 18:40 | Emergency (ER) | payer OTHER ==
[~2023-01-28] VITALS: Ht 175.3 cm; Wt 79.4 kg
[~2023-01-28 18:40] MED LIST changes: +AMLO10 PO; +FAMO20 PO; +POTCHL20ER PO; +TAMS.4ER PO
[2023-01-28 18:55] VITALS: BP 165/84
[2023-01-28 19:47] LABS: Source, Urine Foley catheter
[2023-01-28 19:51] LABS: Appearance, Urine Hazy (Clear); Bilirubin, Urine Neg (Neg); Blood, Urine 5+ (Neg); Color, Urine Yellow (P-Yellow); Glucose Qualitative, Urine Neg (Neg); Ketones, Urine Neg (Neg); Leukocyte Esterase, Urine 1+ (Neg); Nitrite, Urine Neg (Neg); Protein, Urine 2+ (Neg); Urobilinogen, Urine NORM (Normal)
[2023-01-28 19:57] LABS: Hyaline Casts 0-2 /lpf (0-2)
[2023-01-28 19:58] LABS: Bacteria Mod /hpf; Red Blood Cells, Urine 50-100 /hpf (0-2); Squamous Epithelial Cells Not Seen /hpf (Few)
== END 2023-01-28 20:09 | disposition home or self-care (01) ==
LOC: ER 18:40
PROVIDERS: Physician Assistant
DX: T83.021A Displacement of indwelling urethral catheter, initial encounter (principal); I13.0 Hypertensive heart and chronic kidney disease with heart failure and stage 1 through stage 4 chronic kidney disease, or unspecified chronic kidney disease; I50.43 Acute on chronic combined systolic (congestive) and diastolic (congestive) heart failure; N18.30 Chronic kidney disease, stage 3 unspecified; J44.9 Chronic obstructive pulmonary disease, unspecified; F17.290 Nicotine dependence, other tobacco product, uncomplicated; Y73.8 Miscellaneous gastroenterology and urology devices associated with adverse incidents, not elsewhere classified; Z79.82 Long term (current) use of aspirin; Z79.899 Other long term (current) drug therapy
CPT/HCPCS: 51702; 81001; 87086; 99283

== ENCOUNTER 2023-05-26 12:03 | Emergency (ER) | payer OTHER ==
[~2023-05-26] VITALS: Ht 177.8 cm; Wt 90.7 kg
[2023-05-26 12:55] LABS: BASOPHILS ABSOLUTE AUTO 0.06 K/mm3 (0.00-0.23); BASOPHILS PERCENT AUTO 1 % (0-2); EOSINOPHILS ABSOLUTE AUTO 0.23 K/mm3 (0.00-0.68); EOSINOPHILS PERCENT AUTO 2 % (0-6); Hematocrit 40.2 % (37.0-53.0); Hemoglobin 13.6 g/dL (13.5-17.5); IMMATURE GRAN ABSOLUTE AUTO 0.04 K/mm3 (0.00-0.10); IMMATURE GRAN PERCENT AUTO 0 % (0-1); LYMPHOCYTES ABSOLUTE AUTO 2.75 K/mm3 (0.84-5.20); LYMPHOCYTES PERCENT AUTO 28 % (21-46); MONOCYTES ABSOLUTE AUTO 0.69 K/mm3 (0.16-1.47); MONOCYTES PERCENT AUTO 7 % (4-13); Mean Corpuscular HGB 30.9 pg (26.0-34.0); Mean Corpuscular HGB Conc 33.8 g/dL (31.5-36.5); Mean Corpuscular Volume 91 fL (80-100); Mean Platelet Volume 10.5 fL (9.1-12.4); NEUTROPHILS ABSOLUTE AUTO 6.23 K/mm3 (1.96-9.15); NEUTROPHILS PERCENT AUTO 62 % (41-73); Platelet Count 254 K/mm3 (150-400); RDW Coefficient Variation 12.8 % (11.7-14.2); RDW Standard Deviation 42.6 fL (35.1-46.3)
[2023-05-26 13:20] LABS: Albumin, Blood 3.5 g/dL (3.4-5.0); Albumin/Globulin Ratio 0.9 (0.8-1.8); Bilirubin, Total 0.6 mg/dL (0.1-1.0); Bun/Creatinine Ratio 14.4 (12.0-20.0); Calcium, Blood 8.8 mg/dL (8.5-10.1); Creatinine, Blood 2.01 mg/dL (0.60-1.20); Globulin, Blood 3.9 g/dL (2.2-4.0); Potassium, Blood 4.3 mmol/L (3.5-5.5); Total Protein, Blood 7.4 g/dL (6.4-8.2)
[2023-05-26] MEDS ORDERED: MIRALAX17 GM PO (14:29)
[2023-05-26] MEDS ORDERED: DOCU100 PO (14:29)
[2023-05-26 14:30] VITALS: BP 166/75
== END 2023-05-26 15:32 | disposition home or self-care (01) ==
LOC: ER 12:03
PROVIDERS: Emergency Medicine
DX: R55 Syncope and collapse (principal); K59.00 Constipation, unspecified; R00.8 Other abnormalities of heart beat; I13.0 Hypertensive heart and chronic kidney disease with heart failure and stage 1 through stage 4 chronic kidney disease, or unspecified chronic kidney disease; I50.43 Acute on chronic combined systolic (congestive) and diastolic (congestive) heart failure; D63.1 Anemia in chronic kidney disease; N18.30 Chronic kidney disease, stage 3 unspecified; I25.10 Atherosclerotic heart disease of native coronary artery without angina pectoris; I25.2 Old myocardial infarction; J44.9 Chronic obstructive pulmonary disease, unspecified; E78.5 Hyperlipidemia, unspecified; Z91.148 Patient's other noncompliance with medication regimen for other reason; F17.290 Nicotine dependence, other tobacco product, uncomplicated; Z79.82 Long term (current) use of aspirin; Z79.899 Other long term (current) drug therapy; Z79.51 Long term (current) use of inhaled steroids
CPT/HCPCS: 71045; 74018; 80053; 83735; 83880; 84484; 85025; 93005; 93010; 99285-25

== ENCOUNTER 2024-04-20 17:50 | Emergency (ER) | payer OTHER ==
[~2024-04-20] VITALS: Ht 175.3 cm; Wt 77.1 kg
[~2024-04-20 17:50] MED LIST changes: +ALMACONE SUSPE355 ML PO; +MIRALAX17 GM PO
[2024-04-20 18:29] LABS: BASOPHILS ABSOLUTE AUTO 0.03 K/mm3 (0.00-0.23); BASOPHILS PERCENT AUTO 0 % (0-2); EOSINOPHILS PERCENT AUTO 0 % (0-6); Hemoglobin 15.7 g/dL (13.5-17.5); IMMATURE GRAN ABSOLUTE AUTO 0.04 K/mm3 (0.00-0.10); IMMATURE GRAN PERCENT AUTO 0 % (0-1); LYMPHOCYTES ABSOLUTE AUTO 0.58 K/mm3 (0.84-5.20); LYMPHOCYTES PERCENT AUTO 5 % (21-46); MONOCYTES ABSOLUTE AUTO 0.59 K/mm3 (0.16-1.47); MONOCYTES PERCENT AUTO 5 % (4-13); Mean Corpuscular HGB 30.7 pg (26.0-34.0); Mean Corpuscular HGB Conc 34.9 g/dL (31.5-36.5); Mean Corpuscular Volume 88 fL (80-100); Mean Platelet Volume 10.4 fL (9.1-12.4); NEUTROPHILS ABSOLUTE AUTO 10.11 K/mm3 (1.96-9.15); NEUTROPHILS PERCENT AUTO 89 % (41-73); Platelet Count 339 K/mm3 (150-400); RDW Coefficient Variation 12.4 % (11.7-14.2); RDW Standard Deviation 40.2 fL (35.1-46.3); Red Blood Cell Count 5.11 M/mm3 (4.30-5.90); White Blood Cell Count 11.35 K/mm3 (4.00-11.30)
[2024-04-20] MEDS ORDERED: Morphine Sulfate 4 MG/1 ML Injection IV ONE (18:55)
[2024-04-20] MEDS ORDERED: Ondansetron HCl 2 MG / ML 2ML Vial IV ONE (18:55)
[2024-04-20] MEDS ORDERED: NS 1,000 ML IV SCH (18:55)
[2024-04-20 19:00] LABS: Albumin, Blood 3.5 g/dL (3.4-5.0); Albumin/Globulin Ratio 0.9 (0.8-1.8); Bilirubin, Total 0.8 mg/dL (0.1-1.0); Bun/Creatinine Ratio 22.8 (12.0-20.0); Creatinine, Blood 1.14 mg/dL (0.60-1.20); Globulin, Blood 3.9 g/dL (2.2-4.0); Potassium, Blood 3.8 mmol/L (3.5-5.5); Total Protein, Blood 7.4 g/dL (6.4-8.2)
[2024-04-20] MEDS ORDERED: Lidocaine 2% Jelly Uro-Jet UR ONE (19:15)
[2024-04-20 20:47] LABS: Source, Urine Foley catheter
[2024-04-20 20:51] LABS: Appearance, Urine Hazy (Clear); Bilirubin, Urine Neg (Neg); Blood, Urine 2+ (Neg); Glucose Qualitative, Urine Neg (Neg); Ketones, Urine 2+ (Neg); Leukocyte Esterase, Urine 2+ (Neg); Nitrite, Urine Neg (Neg); Protein, Urine 1+ (Neg); Urobilinogen, Urine NORM (Normal); pH, Urine 6.5 (5.0-8.0)
[2024-04-20 20:56] LABS: Color, Urine Pale Yellow (P-Yellow)
[2024-04-20 20:57] LABS: Amorphous Mod (0-Heavy); Bacteria Many /hpf; Squamous Epithelial Cells Rare /hpf (Few)
[2024-04-20] MEDS ORDERED: CefTRIAXone Sodium 1,000 MG in NS 100 ML IV ONE (21:05)
[2024-04-20 21:45] VITALS: BP 200/98
[2024-04-20] MEDS ORDERED: CEPH500 PO (22:35)
[2024-04-21] MEDS ORDERED: Metoprolol Tartrate 1 MG/ML 5 ML VIAL IV ONE (00:10)
[2024-04-21] MEDS ORDERED: XARELTO20 MG PO (00:14)
[2024-04-21] MEDS ORDERED: METO25 PO (00:14)
[2024-04-21] MEDS ORDERED: Rivaroxaban 10 MG Tab PO ONE (00:30)
[2024-04-21] MEDS ORDERED: FentaNYL Citrate 50 MCG/ML 2 ML Injection IV ONE (00:35)
[2024-04-21] MEDS ORDERED: Rivaroxaban 10 MG Tab PO SCH (09:00)
[2024-04-22] MEDS ORDERED: MORP20L PO (15:51)
[2024-04-22] MEDS ORDERED: PROC5 PO (15:51)
[2024-04-22] MEDS ORDERED: Amoxicillin875 MG PO (15:51)
[2024-04-22] MEDS ORDERED: ONDA4ODT MM (15:51)
[2024-04-22] MEDS ORDERED: Amoxicillin500 MG PO (17:11)
[2024-04-22] MEDS ORDERED: ROXICODONE15 MG PO (17:11)
== END 2024-04-21 00:49 | disposition home or self-care (01) ==
LOC: ER 17:50
PROVIDERS: Student in an Organized Health Care Education/Training Program
DX: I48.91 Unspecified atrial fibrillation (principal); N39.0 Urinary tract infection, site not specified; I13.0 Hypertensive heart and chronic kidney disease with heart failure and stage 1 through stage 4 chronic kidney disease, or unspecified chronic kidney disease; I50.40 Unspecified combined systolic (congestive) and diastolic (congestive) heart failure; N18.30 Chronic kidney disease, stage 3 unspecified; E78.5 Hyperlipidemia, unspecified; J44.9 Chronic obstructive pulmonary disease, unspecified; F17.200 Nicotine dependence, unspecified, uncomplicated; Z79.82 Long term (current) use of aspirin; Z79.899 Other long term (current) drug therapy
CPT/HCPCS: 71260; 74177; 80053; 81001; 83690; 83880; 84484; 85025; 87077; 87086; 87186; 93005; 93010; 96365; 96375; 99285-25; A9270; J0696; J2270; J2405; J3010; J7030; Q9967

== ENCOUNTER 2024-04-22 10:17 | Emergency (ER) | payer OTHER ==
[~2024-04-22] VITALS: Ht 175.3 cm; Wt 77.1 kg
[~2024-04-22 10:17] MED LIST changes: +CEPH500 PO; +METO25 PO; +XARELTO20 MG PO
[2024-04-22] MEDS ORDERED: Morphine Sulfate 20 MG/1ML 1 ML Oral Syringe PO ONE ×2 (10:45→13:05)
[2024-04-22 10:53] LABS: BASOPHILS ABSOLUTE AUTO 0.03 K/mm3 (0.00-0.23); BASOPHILS PERCENT AUTO 0 % (0-2); EOSINOPHILS ABSOLUTE AUTO 0.02 K/mm3 (0.00-0.68); EOSINOPHILS PERCENT AUTO 0 % (0-6); Hematocrit 47.7 % (37.0-53.0); Hemoglobin 16.3 g/dL (13.5-17.5); IMMATURE GRAN ABSOLUTE AUTO 0.04 K/mm3 (0.00-0.10); IMMATURE GRAN PERCENT AUTO 0 % (0-1); LYMPHOCYTES PERCENT AUTO 17 % (21-46); MONOCYTES ABSOLUTE AUTO 1.06 K/mm3 (0.16-1.47); MONOCYTES PERCENT AUTO 9 % (4-13); Mean Corpuscular HGB 30.6 pg (26.0-34.0); Mean Corpuscular HGB Conc 34.2 g/dL (31.5-36.5); Mean Corpuscular Volume 90 fL (80-100); NEUTROPHILS PERCENT AUTO 74 % (41-73); Platelet Count 324 K/mm3 (150-400); RDW Coefficient Variation 12.8 % (11.7-14.2); Red Blood Cell Count 5.32 M/mm3 (4.30-5.90); White Blood Cell Count 11.95 K/mm3 (4.00-11.30)
[2024-04-22] MEDS ORDERED: Ondansetron HCl 2 MG / ML 2ML Vial IV ONE (11:20)
[2024-04-22 11:48] LABS: Albumin, Blood 3.3 g/dL (3.4-5.0); Albumin/Globulin Ratio 0.8 (0.8-1.8); Bilirubin, Total 0.7 mg/dL (0.1-1.0); Bun/Creatinine Ratio 26.5 (12.0-20.0); Calcium, Blood 9.8 mg/dL (8.5-10.1); Creatinine, Blood 1.02 mg/dL (0.60-1.20); Globulin, Blood 4.3 g/dL (2.2-4.0); Potassium, Blood 3.9 mmol/L (3.5-5.5); Total Protein, Blood 7.6 g/dL (6.4-8.2)
[2024-04-22] MEDS ORDERED: FentaNYL Citrate 50 MCG/ML 2 ML Injection IV ONE (13:00)
[2024-04-22] MEDS ORDERED: Ampicillin Sod 1,000 MG in NS 50 ML IV ONE (13:00)
[2024-04-22] MEDS ORDERED: Prochlorperazine Edisylate 10 mg Vial IV ONE (13:00)
[2024-04-22] MEDS ORDERED: NS 1,000 ML IV SCH (13:00)
--- NOTE | 2024-04-22 15:08 | NUR ---
MET WITH PATIENT AND DISCUSSED SYMPTOMS. HE REPORTED THAT HE HAS BEEN HAVING A LOT OF N/V FOR THE LAST WEEK. HE HAS NOT BEEN SLEEPING. HE REPORTED THAT HE HAS BEEN HAVING A LOT OF PAIN. CALLED AND SPOKE TO DAUGHTER. WE DISCUSSED HOSPICE. SHE SAID THE PLAN WAS FOR HIM TO GO ON HOSPICE SERVICES BUT HE HAD AN ONCOLOGY APT THAT HE WOULD LIKE TO KEEP. I LET HER KNOW THAT HE WOULD HAVE TO COME OFF HOSPICE SERVICES TO GO TO THAT APT. THEN HE WOULD HAVE TO DECIDE BASED OFF WHAT THE ONCOLOGIST SAID IF HE WANTED TO PRUSUE TREATMENT OR GO BACK ON HOSPICE SERVICES. DISCUSSED WITH PROVIDER AND HE WILL SEND MEDICATIONS TO PROVIDE COMFORT UNTIL THE HOSPICE TEAM CAN TAKE OVER.
[2024-04-22] MEDS ORDERED: MORP20L PO (15:51)
[2024-04-22] MEDS ORDERED: ONDA4ODT MM (15:51)
[2024-04-22] MEDS ORDERED: Amoxicillin875 MG PO (15:51)
[2024-04-22] MEDS ORDERED: PROC5 PO (15:51)
[2024-04-22] MEDS ORDERED: Amoxicillin500 MG PO (17:11)
[2024-04-22] MEDS ORDERED: ROXICODONE15 MG PO (17:11)
[2024-04-22 18:04] VITALS: BP 171/94
== END 2024-04-22 18:04 | disposition home or self-care (01) ==
LOC: ER 10:17
PROVIDERS: Emergency Medicine
DX: T83.511A Infection and inflammatory reaction due to indwelling urethral catheter, initial encounter (principal); C61 Malignant neoplasm of prostate; J44.9 Chronic obstructive pulmonary disease, unspecified; I13.0 Hypertensive heart and chronic kidney disease with heart failure and stage 1 through stage 4 chronic kidney disease, or unspecified chronic kidney disease; I50.40 Unspecified combined systolic (congestive) and diastolic (congestive) heart failure; N18.30 Chronic kidney disease, stage 3 unspecified; I48.91 Unspecified atrial fibrillation; F17.210 Nicotine dependence, cigarettes, uncomplicated; Z79.82 Long term (current) use of aspirin; Z79.899 Other long term (current) drug therapy; Z79.51 Long term (current) use of inhaled steroids
CPT/HCPCS: 80053; 83690; 85025; 93005; 93010; 96365; 96375; 99284-25; A9270; J0290; J0780; J2405; J3010; J7030